=== PATIENT | female | born 1990 | race Caucasian/White ===

== ENCOUNTER 2020-02-04 08:38 | Day surgery (SDC) | payer OTHER ==
[2020-02-01 14:02] VITALS: BMI 29.5
[~2020-02-04 08:38] MED LIST: LACTATED RINGERS 1,000 ML IV SCH; LIDOCAINE 1% (10MG/ML) FOR IV START INTRADERMA PRN
[2020-02-04 09:21] VITALS: RESP 16; TEMP 97.5
[2020-02-04 09:22] LABS: Glucose,Whole Blood 322 mg/dL (75-99)
[2020-02-04] MEDS ORDERED: ONDANSETRON 4 MG/2 ML VIAL ONE (09:22)
[2020-02-04] MEDS ORDERED: INSULIN ASPART (NovoLOG) 100 UNIT/ML VIAL SQ ONE (09:25)
[2020-02-04] MEDS ORDERED: MIDAZOLAM 2 MG/2 ML VIAL ONE (09:27)
[2020-02-04] MEDS ORDERED: PROPOFOL 10 MG/ML 20 ML VIAL IV ONE (09:27)
[2020-02-04] MEDS ORDERED: fentaNYL (PF) 50 MCG/ML 2 ML AMP ONE (09:27)
--- NOTE | 2020-02-04 09:53 | P.PCN ---
Date of Procedure: 02/04/20 Description of Procedure: BRIEF HISTORY: Patient is a 29-year-old female presents for outpatient colonoscopy for evaluation of diarrhea. Patient reports alternating diarrhea, constipation and vague abdominal pain. Reports prior EGD was normal. PROCEDURE PERFORMED: Colonoscopy with biopsy. PREOPERATIVE DIAGNOSIS: Diarrhea. ESTIMATED BLOOD LOSS: Minimal. IV sedation per Anesthesia. PROCEDURE: After informed consent was obtained, the patient, was brought into the endoscopy unit. IV sedation was administered by Anesthesia under continuous monitoring. Digital rectal examination was normal. Initially the Olympus CF-190 flexible video colonoscope was then inserted in the rectum, gradually advanced into the cecum without any difficulty. Careful examination was performed as the scope was gradually being withdrawn. Ileocecal valve and the appendiceal orifice were visualized and appeared normal. Prep was excellent. Mucosa of the cecum, ascending colon, transverse colon, descending colon, sigmoid colon, and rectum appeared normal, with random biopsies taken of the right colon, left colon and rectum with only a mild amount of irritation in the rectum likely related to prep. The terminal ileum was also intubated and appeared normal biopsies taken. Retroflexion was performed in the rectum and no lesions were seen. The patient tolerated the procedure well. IMPRESSION: Normal-appearing colon from rectum to cecum and normal-appearing terminal ileum with random biopsies taken of the terminal ileum, right colon, left colon and rectum. RECOMMENDATIONS: Findings of this examination were discussed with the patient. Okay to resume diet. Okay to resume medications. Await pathology from biopsies. Continue other medical management as scheduled with patient reporting plan HIDA scan.
[2020-02-04 10:08] LABS: Glucose,Whole Blood 340 mg/dL (75-99)
[2020-02-04 10:15] VITALS: BP 117/81; PULSE 75
== END 2020-02-04 10:30 | disposition home or self-care (01) ==
LOC: ORWHC2ENDO 08:38
PROVIDERS: ATTEND Internal Medicine
DX: R19.7 Diarrhea, unspecified (principal); K59.00 Constipation, unspecified; R10.9 Unspecified abdominal pain; K62.89 Other specified diseases of anus and rectum; K63.89 Other specified diseases of intestine; K92.2 Gastrointestinal hemorrhage, unspecified; R11.10 Vomiting, unspecified; I10 Essential (primary) hypertension; J45.909 Unspecified asthma, uncomplicated; E11.9 Type 2 diabetes mellitus without complications; E07.9 Disorder of thyroid, unspecified; F41.9 Anxiety disorder, unspecified; F32.9 Major depressive disorder, single episode, unspecified; Z79.899 Other long term (current) drug therapy; Z79.890 Hormone replacement therapy; Z79.4 Long term (current) use of insulin; Z88.5 Allergy status to narcotic agent; Z88.6 Allergy status to analgesic agent; Z87.898 Personal history of other specified conditions
CPT/HCPCS: 81025; 88305; 45380; J2250; J2405; J3010; J2704